=== PATIENT | female | born 1960 | race Caucasian/White ===

== ENCOUNTER 2016-10-01 00:09 | Emergency (ER) | payer MEDICARE, SELFPAY ==
[2016-10-01] MEDS ORDERED: predniSONE 20 MG TAB ONE ×2 (00:48→01:01)
[2016-10-01] MEDS ORDERED: diphenhydrAMINE HCl 25 MG CAP ONE (00:48)
== END 2016-10-01 01:10 | disposition home or self-care (01) ==
LOC: MADERS 00:09
DX: L25.9 Unspecified contact dermatitis, unspecified cause (principal); E11.9 Type 2 diabetes mellitus without complications; I10 Essential (primary) hypertension; F17.210 Nicotine dependence, cigarettes, uncomplicated; Z79.84 Long term (current) use of oral hypoglycemic drugs; Z79.899 Other long term (current) drug therapy; Z79.82 Long term (current) use of aspirin; Z79.4 Long term (current) use of insulin
CPT/HCPCS: 99282; J7506

== ENCOUNTER 2016-12-02 09:55 | Emergency (ER) | payer MEDICARE ==
[2016-12-02] MEDS ORDERED: Clindamycin 150 MG CAP ONE (11:49)
[2016-12-02] MEDS ORDERED: Acetaminophen 325 MG TAB ONE (11:49)
[2016-12-02] MEDS ORDERED: HYDROcodone/Acetaminophen 5/325 mg Tablet ONE (11:49)
== END 2016-12-02 12:03 | disposition home or self-care (01) ==
LOC: MADERS 09:55
DX: L03.317 Cellulitis of buttock (principal); I25.10 Atherosclerotic heart disease of native coronary artery without angina pectoris; E11.9 Type 2 diabetes mellitus without complications; E78.5 Hyperlipidemia, unspecified; E66.9 Obesity, unspecified; I10 Essential (primary) hypertension; F17.210 Nicotine dependence, cigarettes, uncomplicated; Z79.82 Long term (current) use of aspirin; Z79.899 Other long term (current) drug therapy; Z79.4 Long term (current) use of insulin
CPT/HCPCS: 99283

== ENCOUNTER → 2017-05-07 | Emergency (ER) | payer MEDICARE ==
[~2017-05-07] MED LIST: HYDROcodone/Acetaminophen 5/325 mg Tablet ONE; Ibuprofen 800 MG TAB ONE; Sulfameth/Trimethoprim DS 800-160mg TAB ONE
[2017-05-07 20:46] LABS: Bilirubin Negative (Negative); Blood, Urine Moderate (Negative); Clarity Cloudy (Clear); Glucose, Urine (Dipstick) >=1000 mg/dL (Negative); Leukocyte Trace (Negative); Nitrite Positive (Negative); Protein, Urine (Dipstick) 30 mg/dL (Neg-Trace)
[2017-05-07 20:51] LABS: Bacteria/HPF 4+ HPF (None Seen); WBC/HPF 21-50 HPF (0-3); Yeast-All Forms 1+ HPF (None Seen)
--- NOTE | 2017-05-07 21:31 | CT ---
CT OF ABDOMEN AND PELVIS 05/07/17 COMPARISON: None. HISTORY: Left flank pain. TECHNIQUE: Serial axial CT imaging is obtained at 5 mm intervals from the lung bases through the pubic symphysis without contrast. Coronal reformatted imaging obtained. FINDINGS: The lack of contrast media limits assessment of the viscera, bowel, vascular structures and for lymph adenopathy. Small fat containing hernia noted in the subxiphoid region. Imaged lung bases are unremarkable. No fr ee intraperitoneal air. Limited assessment of the liver, spleen, gallbladder, pancreas, and adrenal g lands is unremarkable. Right kidney is unremarkable. There is mild stranding of the fat within the renal pelvis on the left. There is no left sided hydron ephrosis or hydroureter. No definite calcification is seen along the course of either ureter aside fr om vascular calcification. Limited assessment of the bowel demonstrates no evidence for inflammatory change or obstruction. There is extensive atherosclerotic calcification of the abdominal aorta, especially the infrarenal ab dominal aorta. There is linear calcification within the lumen of the distal abdominal aorta which may represent partially calcified eccentric plaque or a focal dissection without aneurysmal dilatation. No acute osseous abnormality is seen. There is prominent lower lumbar spine facet hypertrophic change s. Bilateral hip degenerative changes are noted. No worrisome lytic or blastic bone lesion. IMPRESSION: 1. Mild stranding of the perinephric fat near the renal pelvis on the left. This could be result s of previously passed stone or inflammatory/infectious change. Correlation with urinalysis advised. No discrete nephrolithiasis or hydronephrosis/hydroureter. 2. Atherosclerotic disease within the abdominal aorta with possible distal abdominal aortic diss ection versus eccentric partially calcified plaque. This could be better assessed via followup noneme rgent CT angiogram. POS: [facility]
== END ==
LOC: MADERS 20:07
DX: N20.0 Calculus of kidney (principal); I25.10 Atherosclerotic heart disease of native coronary artery without angina pectoris; E11.9 Type 2 diabetes mellitus without complications; E78.5 Hyperlipidemia, unspecified; I10 Essential (primary) hypertension; E66.9 Obesity, unspecified; F17.210 Nicotine dependence, cigarettes, uncomplicated; Z79.82 Long term (current) use of aspirin; Z79.84 Long term (current) use of oral hypoglycemic drugs; Z79.899 Other long term (current) drug therapy
CPT/HCPCS: 74176; 81003; 81015

== ENCOUNTER 2017-06-15 08:47 | Outpatient (CLI) | payer MEDICARE ==
--- NOTE | 2017-06-15 11:53 | CT ---
CT ANGIOGRAM OF THE THORACIC AORTA CT ANGIOGRAM OF THE ABDOMINAL AORTA: HISTORY: Possible infection noted on previous film CT. COMPARISON: None. CORRELATION: Stone CT 05/07/17. TECHNIQUE: CT angiogram of the thoracic and abdominal aorta performed in the axial plane. Reformatted images we re submitted for interpretation. FINDINGS: CHEST CT: Nonspecific hypodensity in the anterior left mediastinum measuring 1.7 x 1.8 cm. Heart size is jitendra l. There are coronary artery calcifications. No significant pericardial fluid. Adequate contrast o pacification of the pulmonary arteries to the level of the lobar arteries. No filling defect to impl y thromboembolism. Patchy interstitial opacities. Patchy ground-glass opacities. No consolidation or masses. No pleur al effusion or pneumothorax. Tracheal and central bronchi are patent. The visualized liver, spleen, pancreas, and adrenal have appropriate arterial phase of enhancement. Gallbladder is unremarkable. There is a striated nephrogram phase involving the left kidney. There is mild enhancement of the left renal pelvis and proximal left ureter. Correlate for an infectious p rocess. No evidence of obstructive uropathy. Symmetric attenuation of psoas muscles. Visualized alimentary canal is unremarkable. No mesenteric mass, lymphadenopathy, free air, or free fluid. CT ANGIOGRAM: The thoracic aorta has an overall normal caliber. No filling defect. No thromboembolism. Mild athe rosclerotic disease is noted in the descending thoracic aorta. There is atherosclerosis without sign ificant stenosis involving the visualized abdominal aorta. The celiac artery origin, superior mesent ioana artery origin, bilateral renal artery ostia are patent. Inferior mesenteric artery origin is un remarkable. Distal aorta and aortic bifurcation are also unremarkable. There is short segment moder ate stenosis due to atherosclerotic disease. There is no evidence of a dissection. Note, there does appear to be a small focus of possible ulceration in the atherosclerotic plaque just inferior to the renal arteries. Cardiovascular surgical consultation is recommended. No lytic or blastic lesions in the osseous structures. IMPRESSION: 1. No evidence of aneurysm or dissection. 2. Atheromatous plaque with ulceration in the infrarenal abdominal aorta. Cardiovascular surgical c onsultation is recommended. 3. Striated enhancement of the left kidney suggesting nephrogram phase due to infection. Correlate clinically. 4. Nonspecific hypodensity in the anterior left mediastinum. POS: [facility]
[2017-06-15] MEDS ORDERED: Iopamidol 370 76% 125 ML VIAL FS ONE (13:24)
== END 2017-06-15 08:48 | disposition home or self-care (01) ==
LOC: MADCT 08:47
PROVIDERS: ATTEND Physician Assistant
DX: R93.5 Abnormal findings on diagnostic imaging of other abdominal regions, including retroperitoneum (principal); I70.0 Atherosclerosis of aorta; I71.4 Abdominal aortic aneurysm, without rupture
CPT/HCPCS: 71275

== ENCOUNTER 2017-08-22 17:10 | Emergency (ER) | payer MEDICARE ==
[~2017-08-22 17:10] MED LIST changes: -HYDROcodone/Acetaminophen 5/325 mg Tablet ONE; -Ibuprofen 800 MG TAB ONE; +Sodium Chloride 0.9% 1,000 ML BAG ONE; +Sodium Chloride 0.9% 100 ML BAG ONE; -Sulfameth/Trimethoprim DS 800-160mg TAB ONE
--- NOTE | 2017-08-22 17:37 | RAD ---
CHEST ONE VIEW 08/22/17 HISTORY: Dyspnea. COMPARISON: Chest radiograph from 2015. FINDINGS: Lungs are clear. No pneumothorax or effusion. The cardiac silhouette and mediastinal contour are of n ormal limits. Moderate degenerative changes of the shoulders as well as calcific tendinosis of the ri ght rotator cuff. IMPRESSION: No acute intrathoracic abnormality or significant change. POS: [facility]
[2017-08-22 17:54] LABS: INR-International Normal Ratio 1.1; PTT 25.7 SEC (22.9-36.1); Prothrombin Time 14.4 SEC (12.0-14.7)
[2017-08-22] MEDS ORDERED: Lorazepam 2 MG/ML VIAL ONE (17:55)
[2017-08-22] MEDS ORDERED: Morphine 10 MG/ML VIAL ONE (17:55)
[2017-08-22] MEDS ORDERED: Ondansetron ODT 4 MG TAB ONE (17:55)
[2017-08-22] MEDS ORDERED: Dexamethasone 10 MG/ML VIAL ONE (17:55)
[2017-08-22] MEDS ORDERED: methylPREDNISolone Sod Succ/PF 125 MG/2 ML VIAL ONE (17:56)
[2017-08-22 18:06] LABS: ALT (SGPT) 13 U/L (8-55); AST (SGOT) 19 U/L (5-34); Albumin 3.8 g/dL (3.5-5.0); Alkaline Phosphatase 127 U/L (40-150); Anion Gap 20 mmol/L (10-20); BUN (Urea Nitrogen) 11 mg/dL (9.8-20.1); Bilirubin, Total 0.7 mg/dL (0.2-1.2); CK (CPK) 27 U/L (29-168); Calc. Creatinine Clearance 0 mL/min (70-130); Carbon Dioxide 21 mmol/L (22-29); Chloride 95 mmol/L (98-107); Estimated GFR-MDRD 59; Globulin 3.7 g/dL (2.4-3.5); Glucose 400 mg/dL (70-105); Magnesium 1.6 mg/dL (1.6-2.6); Potassium 3.4 mmol/L (3.5-5.1); Protein, Total 7.5 g/dL (6.0-8.3); Sodium 133 mmol/L (136-145)
[2017-08-22 18:07] LABS: CKMB 0.4 ng/mL (0-6.6); Troponin I 0.014 ng/mL (< 0.028)
[2017-08-22 18:13] LABS: Band 8 % (5-11); Hemoglobin 14.8 g/dL (12.0-16.0); Lymphocytes 9 % (21-51); MDiff Complete? YES; Mean Corpuscular HGB CONC 34.9 g/dL (32.0-36.0); Mean Corpuscular Hemoglobin 31.5 pg (27.0-31.0); Mean Corpuscular Volume 90.3 fl (81.0-99.0); Mean Platelet Volume 9.4 fL (7.4-10.4); Monocytes 3 % (0-10); Neutrophil 80 % (42-75); PLT Morphology Comment Appears Adequate; Platelet Count 173 thou/uL (130-400); RBC Distribution Width 13.2 % (11.5-14.5); RBC Morphology Normal; White Blood Cell (WBC) Count 3.8 thou/uL (4.8-10.8)
[2017-08-22] MEDS ORDERED: Insulin Regular 300 UNITS/3 ML VIAL ONE (18:28)
[2017-08-22 18:43] LABS: Bilirubin Negative (Negative); Blood, Urine Small (Negative); Clarity Clear (Clear); Glucose, Urine (Dipstick) >=1000 mg/dL (Negative); Leukocyte Negative (Negative); Nitrite Positive (Negative); Protein, Urine (Dipstick) 30 mg/dL (Neg-Trace); pH, Urine 5.5 (5.0-9.0)
[2017-08-22 18:46] LABS: Bacteria/HPF 3+ HPF (None Seen); RBC/HPF 0-3 HPF (0-3)
[2017-08-22] MEDS ORDERED: Acetaminophen 500 MG TAB ONE (19:18)
[2017-08-22 21:30] LABS: Lactic Acid 4.3 mmol/L (0.5-2.2)
[2017-08-22] MEDS ORDERED: cefTRIAXone\\ROCEPHIN 2 GM VIAL ONE (21:55)
== END 2017-08-22 22:03 | disposition short-term general hospital (02) ==
LOC: MADERS 17:10
DX: A41.9 Sepsis, unspecified organism (principal); E11.65 Type 2 diabetes mellitus with hyperglycemia; N39.0 Urinary tract infection, site not specified; I25.10 Atherosclerotic heart disease of native coronary artery without angina pectoris; E66.9 Obesity, unspecified; I10 Essential (primary) hypertension; F17.210 Nicotine dependence, cigarettes, uncomplicated; Z79.82 Long term (current) use of aspirin; Z79.899 Other long term (current) drug therapy; Z79.4 Long term (current) use of insulin; Z79.84 Long term (current) use of oral hypoglycemic drugs
CPT/HCPCS: 36416; 71045; 80053; 81001; 82550; 82553; 83605; 83735; 83880; 84484; 85025; 85610; 85730; 87040; 87077; 87086; 87149; 87186; 93005; 94760; 96361; 96365; 96366; 96375; 96376; 36415-59; A4353; J0696; J1100; J1815; J2060; J2270; J2930; J7050; J7620; Q0162

== ENCOUNTER 2017-08-29 01:34 | Emergency (ER) | payer MEDICARE ==
[~2017-08-29 01:34] MED LIST changes: -Sodium Chloride 0.9% 1,000 ML BAG ONE; -Sodium Chloride 0.9% 100 ML BAG ONE; +cefTRIAXone\\ROCEPHIN 2 GM VIAL ONE
[2017-08-29] MEDS ORDERED: cefTRIAXone\\ROCEPHIN 2 GM VIAL ONE (09:31)
== END 2017-08-29 02:27 | disposition home or self-care (01) ==
LOC: MADERS 01:34
DX: Z48.01 Encounter for change or removal of surgical wound dressing (principal); I25.2 Old myocardial infarction; E11.9 Type 2 diabetes mellitus without complications; E66.9 Obesity, unspecified; E78.5 Hyperlipidemia, unspecified; I10 Essential (primary) hypertension; F32.9 Major depressive disorder, single episode, unspecified; F17.210 Nicotine dependence, cigarettes, uncomplicated; Z79.4 Long term (current) use of insulin; Z79.82 Long term (current) use of aspirin
CPT/HCPCS: 36415; 80053; 85027; 86140; 99283; J0696; J1642

== ENCOUNTER 2024-01-24 12:35 | Emergency (ER) | payer MEDICARE, MEDICAID ==
[2024-01-24] MEDS ORDERED: Amoxicillin/Potassium Clav 875 MG TAB ONE (13:43)
== END 2024-01-24 13:49 | disposition home or self-care (01) ==
LOC: MADERS 12:35
DX: L03.115 Cellulitis of right lower limb (principal); E10.42 Type 1 diabetes mellitus with diabetic polyneuropathy; F17.210 Nicotine dependence, cigarettes, uncomplicated; I10 Essential (primary) hypertension
CPT/HCPCS: 36416; 99283

== ENCOUNTER 2024-02-05 19:03 | Emergency (ER) | payer MEDICARE, MEDICAID ==
[2024-02-05] MEDS ORDERED: Doxycycline 100 MG CAP ONE (20:02)
[2024-02-05] MEDS ORDERED: Amoxicillin/Potassium Clav 875 MG TAB ONE (20:02)
== END 2024-02-05 22:30 | disposition home or self-care (01) ==
LOC: MADERS 19:03
DX: L03.115 Cellulitis of right lower limb (principal); E11.9 Type 2 diabetes mellitus without complications; I10 Essential (primary) hypertension; E78.00 Pure hypercholesterolemia, unspecified; F17.210 Nicotine dependence, cigarettes, uncomplicated; Z95.5 Presence of coronary angioplasty implant and graft; Z79.82 Long term (current) use of aspirin; Z79.4 Long term (current) use of insulin; Z79.84 Long term (current) use of oral hypoglycemic drugs; Z79.899 Other long term (current) drug therapy
CPT/HCPCS: 99283